=== PATIENT | female | born 1960 | race Caucasian/White ===

== ENCOUNTER → 2019-01-17 | Day surgery (SDC) | payer BC ==
[~2019-01-17] MED LIST: ACETAMINOPHEN 1,000 MG/100 ML BTL IVPB ONE; BUPIVACAINE 0.25% MPF 30ML VIAL IVP ONE; BUPIVACAINE 0.5% W/EPI MPF 30 ML VIAL SQ ONE; BUPIVACAINE LIPOSOME/PF 133MG/10ML VIAL IV ONE; CLINDAMYCIN PHOS/D5W 900MG 900 MG/50 ML BAG IVPB ONE; DEXAMETHASONE 4 MG/ML 1ML VIAL IVP ONE; FENTANYL PF 100MCG/2ML VIAL IV ONE; GLYCOPYRROLATE 0.2 MG/ML ML IV ONE; LIDOCAINE 2% MDV (20MG/ML) 20ML VIAL IV ONE; METHYLPREDNISOLONE 40MG/VIAL IU ONE; MIDAZOLAM HCL 2MG/2ML VIAL IV ONE; MORPHINE SULFATE 10MG/1ML **1ML VIAL IU ONE; PROPOFOL 10 MG/ML VIAL IV ONE; RINGERS SOLUTION,LACTATED 1,000 ML IV ONE
--- NOTE | 2019-01-22 07:51 | Operative Note ---
DATE OF SURGERY: 01/17/2019 PREOPERATIVE DIAGNOSIS: Left shoulder impingement, possible rotator cuff tear. POSTOPERATIVE DIAGNOSES: 1. Small chronic tear of the rotator cuff on the left. 2. Left shoulder synovitis. 3. Profound left shoulder external impingement with bursitis. 4. Arthrosis left distal clavicle. OPERATION: 1. Repair of a chronically torn rotator cuff tear. 2. Left shoulder arthroscopy with synovectomy. 3. Left shoulder open acromioplasty, CA ligament resection with subacromial bursectomy. 4. Left shoulder distal clavicle resection. STAFF SURGEON: Faraz Childers MD ANESTHESIA: Interscalene block with sedation. PREPARATION: Chloraprep. INDIVIDUAL CONSIDERATIONS: None. PROCEDURE: The patient was taken to the operating room, placed supine on the operating room table. She had a successful induction of a block and then she was placed in a semi-seated beach chair position and sedated. The patient was then prepped and draped in the usual fashion. The patient had posterior portal identified for arthroscopy. Skin was infiltrated with 0.5% Marcaine with epinephrine prior. An 18-gauge spinal needle was easily placed in the joint, and the joint was inflated with normal saline with a 50-mL syringe. A stab wound was made, and a blunt-tipped trocar for the scope was placed in the joint. The joint was inflated with normal saline. An anterior accessory portal was then made just inferior to the intact long head of the biceps tendon in a retrograde fashion with a Wissinger reji, and the joint was irrigated out. The patient had diffuse synovitis which was debrided out with a shaver. Long head was okay. Labrum was okay. Glenohumeral joint was normal. Subscap tendon was normal. Rotator cuff underneath looked contused but I did not see a tear at this point. After irrigation, portals were closed with cathy. The patient had an anterior approach to the subacromial space and distal clavicle. Skin was again infiltrated with 0.5% Marcaine with epinephrine prior. Sharp dissection carried down through skin and subcutaneous tissues. Small veins were coagulated with a Bovie. An anterior deltoid interval was developed. Care was taken not to split the deltoid more than about 4 cm distal to the anterior tip of the acromion to prevent injury to the axillary nerve. Once in the subacromial space, it was extremely tight. There was diffuse bursitis. The deltoid was then taken subperiosteally off the anterior aspect of the acromion, over the top of the intact CA ligament, and off the anterior aspect of a highly degenerated distal clavicle. CA ligament was resected with a Bovie. Distal clavicle was removed with an oscillating saw taking about 1 cm. There were huge spurs at the AC joint. In the subacromial space, she had a large anterior spur on the acromion. An anterior acromioplasty was performed taking about 6-7 mm tapering towards posteromedially to include the spurs at the AC joint. The undersurface was then smoothed off with a rasp. A very thick bursa was debrided out. I now had a good look at the rotator cuff. It looked contused, and there was a small tear which was actually in the area of the AC joint. This was intertendinous and I was able to fix this with 0 Vicryl suture interrupted stitch. After irrigation, the deltoid was reattached to the remaining acromion with multiple interrupted #2 Vicryl going directly through the bony acromion. Periosteal cuff of the distal clavicle was closed with a running #2 Vicryl. anterior deltoid interval was closed with a running #1 Vicryl. Subcu was closed with 2-0 plus Vicryl in layers and skin was closed with running 3-0 quill. An 18-gauge spinal needle was placed into the subacromial space. It was injected with 40 mg of Depo-Medrol, 10 mg of morphine, and 10 mL of 0.5% Marcaine with epinephrine. A sterile bulky compressive dressing and sling were applied. The patient tolerated the procedure well. Needle and sponge counts were correct. Estimated blood loss was minimal. She was taken back to recovery in good condition. There were no complications. ALAN
== END | disposition home or self-care (01) ==
LOC: SUR 06:54
PROVIDERS: ATTEND Orthopaedic Surgery
DX: M75.102 Unspecified rotator cuff tear or rupture of left shoulder, not specified as traumatic (principal); M65.812 Other synovitis and tenosynovitis, left shoulder; M19.012 Primary osteoarthritis, left shoulder; M75.52 Bursitis of left shoulder; I10 Essential (primary) hypertension; F17.210 Nicotine dependence, cigarettes, uncomplicated
CPT/HCPCS: 29820; 23412; 23120; 01630; 64418; J3010; J3490; C9290; J2270; 76942; J1030; J7120